=== PATIENT | male | born 1965 | race Caucasian/White ===

== ENCOUNTER → 2022-01-10 10:00 | Outpatient (CLI) | payer OTHER, SELFPAY ==
--- NOTE | ~2022-01-10 | XR_ITS ---
XR knee LT 3V 01/10/2022 10:40 Indication: Left knee pain Procedure: 3 views left knee Comparison: No prior studies for comparison. Findings: No fracture, subluxation or dislocation. No significant joint effusion. No significant join t space narrowing. There is mild osteoarthritis of the patellofemoral compartment. Impression: 1: Mild patellofemoral compartment osteoarthritis. Reviewed, dictated and finalized at location A. Impression: 1: Mild patellofemoral compartment osteoarthritis.
== END ==
PROVIDERS: PCP Family Medicine; Visit Provider Physician Assistant
DX: M17.12 Unilateral primary osteoarthritis, left knee (principal)
CPT/HCPCS: 73562

== ENCOUNTER → 2022-08-22 08:18 | Outpatient (CLI) | payer OTHER, SELFPAY ==
--- NOTE | ~2022-08-22 | US_ITS ---
Limited Abdominal Sonogram: Real-time sonographic imaging of the right upper quadrant was performed. Clinical History: Abnormal serum enzymes COMPARISON: 11/20/2017 Findings: The liver appears normal with no evidence of bile duct dilatation. 9 mm echogenic mass in the right hepatic lobe is most compatible small hemangioma. Main portal vein demonstrates normal dire ction of flow. The gallbladder is well distended, and contains large echogenic gallstone. No gallblad shantell wall thickening evident. The common bile duct measures 3 mm. The visualized pancreas, aorta, and IVC are unremarkable. Impression: Cholelithiasis. Probable 9 mm hepatic hemangioma, essentially unchanged since prior exam. Reviewed, dictated and finalized at location M. [employer] Impression: Cholelithiasis. Probable 9 mm hepatic hemangioma, essentially unchanged since prior exam.
== END ==
PROVIDERS: PCP Family Medicine; Visit Provider Physician Assistant
DX: R74.8 Abnormal levels of other serum enzymes (principal); K80.20 Calculus of gallbladder without cholecystitis without obstruction
CPT/HCPCS: 76705

== ENCOUNTER 2025-04-21 08:19 | Outpatient (CLI) | payer OTHER, SELFPAY ==
--- NOTE | ~2025-04-21 | US_ITS ---
US abdomen limited Indication: K80.20 - Calculus of gallbladder without cholecystitis wi... Comparison: None Technique: Nunes-scale and color Doppler images were obtained. Findings: LIVER: Unremarkable, liver contours intact, no lesions. Normal echogenicity. . GALLBLADDER/BILIARY: Cholelithiasis, no wall thickening, no pericholecystic fluid. CBD 4 mm. [place] sign negative. PANCREAS: Pancreas limited by bowel gas. Right Kidney: Right kidney was not imaged Impression: Cholelithiasis Reviewed, dictated and finalized at location P. Impression: Cholelithiasis
== END 2025-04-21 08:20 | disposition home or self-care (01) ==
LOC: GOSHIMG 08:20
PROVIDERS: PCP Physician Assistant Medical; Visit Provider Physician Assistant Medical
DX: K80.20 Calculus of gallbladder without cholecystitis without obstruction (principal); R74.8 Abnormal levels of other serum enzymes
CPT/HCPCS: 76705